=== PATIENT | female | born 1990 | race Two or more races ===

== ENCOUNTER 2020-08-21 13:58 | Emergency (ER) | payer BC, OTHER ==
[2020-08-21 14:16] VITALS: BMI 24.3
[2020-08-21] MEDS ORDERED: SODIUM CHLORIDE 0.9% 500 ML INFUS.BAG IV ONE (14:44)
[2020-08-21] MEDS ORDERED: ALBUTEROL SO4 2.5/IPRATROPIUM 0.5 INH SOL 3 ML VIAL.NEB. NEB ONE ×3 (14:47→16:45)
[2020-08-21 15:58] LABS: BASO % 0.5 % (0-2.0); EOS % 2.4 % (0-4.5); HEMATOCRIT 36.9 % (32.4-45.2); HEMOGLOBIN 12.2 GM/dL (10.7-15.3); LYMPH % 25.3 % (8-40); MCH 28.8 pg (25.7-33.7); MCHC 33.1 g/dl (32.0-36.0); MEAN CELL VOLUME 87.3 fl (80-96); MEAN PLT VOLUME 9.2 fl (7.5-11.1); MONO % 11.4 % (3.8-10.2); NEUT % 60.4 % (42.8-82.8); PLATELET COUNT 174 10^3/uL (134-434); RBC 4.23 M/mm3 (3.60-5.2); RDW 12.7 % (11.6-15.6)
[2020-08-21 16:32] LABS: ALBUMIN 3.8 g/dl (3.4-5.0); BLOOD UREA NITROGEN 8.3 mg/dL (7-18)
[2020-08-21 16:35] LABS: URINE APPEARANCE CLEAR; URINE BILIRUBIN NEGATIVE (NEGATIVE); URINE COLOR YELLOW; URINE GLUCOSE (UA) NEGATIVE (NEGATIVE); URINE KETONE NEGATIVE (NEGATIVE); URINE LEUK ESTERASE NEGATIVE (NEGATIVE); URINE NITRITE NEGATIVE (NEGATIVE); URINE PROTEIN NEGATIVE (NEGATIVE); URINE UROBILINOGEN 0.2 mg/dL (0.2-1.0)
[2020-08-21 16:35] LABS: CREATININE 0.6 mg/dL (0.55-1.3)
[2020-08-21 16:37] LABS: TOT PROT 7.6 g/dl (6.4-8.2)
[2020-08-21 16:38] LABS: HCG,QUALITATIVE URINE Negative
[2020-08-21 17:07] VITALS: BP 101/61; PULSE 84; TEMP 98.2
[2020-08-21 17:09] LABS: BILIRUBIN,TOTAL 0.2 mg/dL (0.2-1)
== END 2020-08-21 17:33 | disposition home or self-care (01) ==
LOC: JER 13:58 → JERFT 13:58 → JER 17:33
PROC: 3E0F7GC Introduction of Other Therapeutic Substance into Respiratory Tract, Via Natural or Artificial Opening (ICD-10-PCS; principal; 2020-08-21)
PROC: 3E0F7GC Introduction of Other Therapeutic Substance into Respiratory Tract, Via Natural or Artificial Opening (ICD-10-PCS; 2020-08-21)
DX: R05 Cough (principal); R53.83 Other fatigue
CPT/HCPCS: 36415; 71046-TC-FY; 80053; 81003; 84703; 85025; 85379; 87086; 99284-25; C9803; U0003; U0005

== ENCOUNTER 2022-04-18 10:24 | Emergency (ER) | payer OTHER, BC ==
[2022-04-18 10:40] VITALS: BP 154/93; PULSE 91; RESP 20; TEMP 97.8; BMI 25.7
== END 2022-04-18 14:00 | disposition home or self-care (01) ==
LOC: JERFT 10:24
DX: Z77.21 Contact with and (suspected) exposure to potentially hazardous body fluids (principal)
CPT/HCPCS: 99283-25